=== PATIENT | male | born 1995 | race Caucasian/White ===

== ENCOUNTER 2017-01-28 13:16 | Emergency (ER) | payer OTHER ==
[~2017-01-28] VITALS: Ht 175.3 cm; Wt 72.7 kg
[2017-01-28] MEDS ORDERED: NAPROSYN500 MG PO (16:53)
[2017-01-28 17:09] VITALS: BP 140/80
== END 2017-01-28 17:09 | disposition home or self-care (01) | DRG 605 ==
LOC: ED 13:16
DX: S00.01XA Abrasion of scalp, initial encounter (principal); R07.81 Pleurodynia; V49.50XA Passenger injured in collision with unspecified motor vehicles in traffic accident, initial encounter